=== PATIENT | female | born 1950 | race African-American/Black ===

== ENCOUNTER 2019-01-29 09:35 | Day surgery (SDC) | payer MEDICARE, OTHER, SELFPAY ==
[2019-01-29] VITALS (7 sets, daily range): BP systolic 113–132; BP diastolic 75–88; PULSE 69–84; RESP 16–18; TEMP 36.4–36.9; O2SAT 94–100; BMI 33.9
--- NOTE | 2019-01-29 09:44 | EKG12_ITS ---
Test Reason : PREOP Blood Pressure : / mmHG Vent. Rate : 072 BPM Atrial Rate : 072 BPM P-R Int : 178 ms QRS Dur : 078 ms QT Int : 394 ms P-R-T Axes : 044 023 019 degrees QTc Int : 431 ms Normal sinus rhythm Normal ECG No previous ECGs available Confirmed by ALEXX CARTWRIGHT, GWEN ([id number]), television news video editor ZHAO ELIZONDO ([id number]) on 02/02/2019 10:41:07 AM Referred By: Earnest May Confirmed By:JAZMINE COFFEY MD
[2019-01-29] MEDS: Lactated Ringers 1,000 ML 100 ML IV (10:26)
[2019-01-29] MEDS: Cefazolin 2 GM in 0.9% Normal Saline 100 ML IV (11:39)
[2019-01-29 11:56] LABS: Bedside Glucose 127 mg/dL (70-110)
[2019-01-29] MEDS: Epinephrine (1 mg/ml) 1 MG/ML VIAL (12:11)
[2019-01-29] MEDS: Bupiv/Epi 0.25% 30 ML Vial (12:43)
--- NOTE | 2019-01-29 13:02 | PCM.OPRPT ---
Report of Operation Date of Procedure: 01/29/19 Pre-Operative Diagnosis: SAIS, AC arthrosis, bicipital tendonitis and possible RCT left shoulder Post-Operative Diagnosis: same with no rotator cuff tear Surgery/Procedure Performed:: ASD, Mumfor procedure, biceps tenotomy left shoulder cotton wringer: Osito Perla Type of Anesthesia:: General/Regional Anesthesiologist: Christoph Villarreal - Admit VTE Documentation VTE Present on Admission: No VTE Mechan Device Prophylaxis: SCD's VTE Pharm Prophylaxis ordered?: No Reason prophylaxis not ordered:: Treatment Not Indicated
[2019-01-29 13:20] LABS: Bedside Glucose 118 mg/dL (70-110)
== END 2019-01-29 15:00 | disposition home or self-care (01) ==
LOC: SDC 09:37 → AC 09:40
PROVIDERS: Family Provider Preventive Medicine Occupational Medicine; PCP Preventive Medicine Occupational Medicine; Referring Provider Orthopaedic Surgery; Visit Provider Orthopaedic Surgery
PROC: (CPT 29827; principal; 2019-01-29 10:55)
DX: M75.42 Impingement syndrome of left shoulder (principal); M19.012 Primary osteoarthritis, left shoulder; M65.812 Other synovitis and tenosynovitis, left shoulder; M75.22 Bicipital tendinitis, left shoulder; E11.9 Type 2 diabetes mellitus without complications; I10 Essential (primary) hypertension; I34.1 Nonrheumatic mitral (valve) prolapse; E66.3 Overweight; Z68.33 Body mass index [BMI] 33.0-33.9, adult; Z79.84 Long term (current) use of oral hypoglycemic drugs; Z79.82 Long term (current) use of aspirin; Z79.899 Other long term (current) drug therapy; Z87.891 Personal history of nicotine dependence; Z86.718 Personal history of other venous thrombosis and embolism
CPT/HCPCS: 29824; 64415; 82962; 93005; J7120; J2405